=== PATIENT | female | born 1965 | race Two or more races ===

== ENCOUNTER 2024-12-12 21:15 | Emergency (ER) | payer MEDICAID, SELFPAY ==
[2024-12-12 21:16] VITALS: BP 145/81; PULSE 109; RESP 18; TEMP 37.4; O2SAT 96; BMI 43.9
[2024-12-12 23:19] LABS: Strep A Rapid Positive (Negative)
[2024-12-12] MEDS: AMOXICILLIN 250 MG CAPSULE 500 MG PO (23:58)
[2024-12-12] MEDS: NAPROXEN 250 MG TABLET 500 MG PO (23:58)
--- NOTE | 2024-12-13 04:00 | EDNOTE_ITS ---
Upper Respiratory Inf. RME/HPI General Chief Complaint: Fever Stated Complaint: FEVER X3 DAYS, THROAT PAIN Time Seen by Provider: 12/12/24 22:08 Arrival date/time: 12/12/24 21:15 59F with history of DM and HTN presents to ED with several days of sore throat and fevers/chills. No cough. Patient has been spending a lot of time with her grandchildren. Limitations: no limitations Related Data Home Medications ?Medication ?Instructions ?Recorded ?Confirmed anticholesterol ##0 03/05/17 bp med ##0 03/05/17 insulin ##0 03/05/17 Previous Rx's ?Medication ?Instructions ?Recorded aspirin 81 mg tablet 81 mg PO QDAY ##60 12/06/11 Hydrocodone/Acetaminophen * (NORCO 1 tab PO Q6H PRN PA IN #12 tabs 03/05/17 5/325 *) amoxicillin 500 mg tablet 500 mg PO BID 10 days #20 ta bs 12/12/24 Allergies Allergy/AdvReac Type Severity Reaction Status Date / Time No Known Allergies Allergy Verified 12/12/24 21:16 Review of Systems Review of Systems Systems Reviewed: All systems reviewed, normal except as documented Constitutional Constitutional: Reports system reviewed and no additional complaints, except as documented, Reports as per HPI, Reports chills, Reports fever(s) and Denies headache(s) ENT Ears, Nose, Mouth, and Throat: Reports as per HPI, Denies disequilibrium, Denies headache(s) and Reports sore throat Cardiovascular Cardiovascular: Reports system reviewed and no additional complaints, except as documented, Denies chest pain and Denies dyspnea Respiratory Respiratory: Reports system reviewed and no additional complaints, except as documented, Denies cough and Denies dyspnea Gastrointestinal Gastrointestinal: Reports system reviewed and no additional complaints, except as documented, Denies abdominal pain, Denies nausea and Denies vomiting Neurologic Neurologic: Reports system reviewed and no additional complaints, except as documented, Denies confusion, Denies disequilibrium and Denies headache(s) Psychiatric Psychiatric: Denies confusion Past Medical History Social History SMOKING STATUS: Never smoker ED Exam General Limitations: Present no limitations General appearance: Present alert and in no apparent distress Head Head exam: Present atraumatic Eye Eye exam: Present normal appearance, PERRL and EOMI ENT ENT exam: Present mucous membranes moist Expanded ENT Exam Throat exam: Present tonsillar erythema, tonsillomegaly and tonsillar exudate; Absent R peritonsillar mass, L peritonsillar mass or muffled voice Neck Neck exam: Present normal inspection, full ROM and trachea midline Chest Chest inspection: Present normal inspection and symmetric chest wall rise Respiratory Respiratory exam: Present normal lung sounds bilaterally Cardiovascular Cardiovascular exam: Present regular rate, normal rhythm and normal heart sounds Abdominal Exam Abdominal exam: Present soft and normal bowel sounds Extremities Exam Extremities exam: Present normal inspection and full ROM Back Exam Back exam: Present normal inspection and full ROM Neurological Exam Neurological exam: Present alert, oriented X3 and CN II-XII intact Psychiatric Psychiatric exam: Present normal affect and normal mood Skin Skin exam: Present warm, dry, intact and normal color Course Quality Measures none Orders Category Date Time Status Bedside COVID-19 Antigen Test NOW Care 12/12/24 22:09 Completed Bedside Influenza A&B Antigen Test NOW Care 12/12/24 22:09 Completed Strep A Rapid Stat Lab 12/12/24 22:14 Completed Amoxicillin Cap [Amoxil Cap] Med 12/12/24 23:20 Discontinued 500 mg PO X1 ONE Naproxen [Naprosyn] Med 12/12/24 23:20 Discontinued 500 mg PO X1 ONE Vital Signs Vital signs: Vital Signs Temperature 99.4 F 12/12/24 21:16 Pulse Rate 109 H 12/12/24 21:16 Respiratory Rate 18 12/12/24 21:16 Blood Pressure 145/81 H 12/12/24 21:16 Pulse Oximetry (%) 96 12/12/24 21:16 Oxygen Delivery Method Room Air 12/12/24 21:16 O2 at 96% on RA and WNLs Upper Respiratory Infection MDM Narrative MDM Narrative:: 59F with history of DM and HTN presents to ED with several days of sore throat and fevers/chills. No cough. Patient has been spending a lot of time with her grandchildren. Physical exam reveals red and swollen oropharynx with exudates. Normal WOB. Patient is afebrile, calm, and alert. Strep+. Patient data External records reviewed:: [facility] previous records Clinical information provided by:: patient Social determinants that could affect healthcare access:: none Patient has the following chronic illnesses:: DM and HTN How is presenting disease/condition affected by chronic disease/condition?: exacerbated by Evaluation data The following diagnostics were reviewed and interpreted by me:: lab results Lab and/or radiology exams considered but not ordered:: ordered Interpretation Summary: above Medications / Prescriptions Medications or Prescriptions considered but not ordered:: ordered Medication administrations:: Medication Administration History Discontinued Medications Amoxicillin (Amoxicillin 250 Mg Capsule) 500 mg PO X1 ONE Stop: 12/12/24 23:21 Last Admin: 12/12/24 23:58 Dose: 500 mg Documented By: MESHA Naproxen (Naproxen 250 Mg Tablet) 500 mg PO X1 ONE Stop: 12/12/24 23:21 Last Admin: 12/12/24 23:58 Dose: 500 mg Documented By: MESHA above Consultations Consultation(s) initiated? (list below): No Diagnosis Upper Respiratory Differential Diagnosis: upper respiratory infection, croup, otitis media, sinusitis, viral infection, bronchitis, influenza and pharyngitis Most likely diagnosis given after review of the tests above:: strep throat Admission Indicated Admission indicated?: not indicated Admission Request Was there a request for admission?: No Disposition Plan Disposition Plan: Discharge Discharge Attestation Discharge Attestation: The patient and all family members were given an opportunity to ask questions and understood the discharge instructions. Discharge instructions specifically effects, indications for sooner follow up or return to the emergency department, and the expected course of current diagnosis. Patient condition: Stable Discharge Plan Plan Patient Disposition: HOME (Self Care) Discharge Disposition comment: Stable Prescriptions/Referrals Prescriptions/Med Rec: New amoxicillin 500 mg tablet 500 mg PO BID 10 Days Qty: 20 0RF No Action aspirin 81 MG tablet 81 mg PO QDAY Qty: 60 2RF anticholesterol Qty: 0 bp med Qty: 0 insulin Qty: 0 Hydrocodone/Acetaminophen * (NORCO 5/325 *) 1 TAB tablet 1 tab PO Q6H PRN (Reason: PAIN) Qty: 12 0RF Referrals: Ravi Mccracken MD [Primary Care Provider] - In 1 week Problem List Clinical Impression: Acute streptococcal pharyngitis Patient/Caregiver Discharge Instructions Education Materials: ED Pharyngitis, Strep (Confirmed) Additional Instructions: Please follow-up with PCP within 24-48 hours and return immediately if symptoms worsen. Ibuprofen/Tylenol can be used simultaneously for greater fever/pain control. Print Language: Setswana Stand Alone Forms: Patient Portal Info Letter BERTHA/ROD Supervising Physician BERTHA/ROD Supervising Physician: Dr. Burr
== END 2024-12-12 23:59 | disposition home or self-care (01) ==
PROVIDERS: Physician Assistant; Emergency Provider Emergency Medicine; PCP Family Medicine
DX: J02.0 Streptococcal pharyngitis (principal)
CPT/HCPCS: 87400; 87651; 87811; 99283; A9270